=== PATIENT | female | born 1985 | race African-American/Black ===

== ENCOUNTER 2016-11-02 07:45 | Emergency (ER) | payer OTHER ==
[~2016-11-02] VITALS: Ht 147.3 cm; Wt 108.4 kg
[~2016-11-02 07:45] MED LIST: BENADRYL25 MG PO; CITRATE OF MAG296 ML PO; DICLEGIS DR 101 EACH PO; FLAGYL500 MG PO; IBUPROFEN 200200 M1; IBUPROFEN 600600 M1 PO; IBUPROFEN 800800 MG PO; KEFLEX500 MG PO; LEXAPRO20 MG PO; MACROBID 100 M100 M2 PO; MEDROLDOSEPACK PO; NOHOMEMEDICATIONS; NORCO 5-325 TA1 EACH PO; PENICILLIN VK500 MG PO; PEPCID40 MG PO; PERCOCET 5-3251 EACH PO; PROZAC20 MG PO; TIZANIDINE HCL4 MG PO; TRAZODONE HCL100 MG PO; TRINATE TABLET1 TAB PO; VALIUM5 MG PO; ZOFRAN ODT4 MG PO
[2016-11-02] MEDS ORDERED: NORCO 5-325 TA1 EACH PO (08:02)
[2016-11-02] MEDS ORDERED: VALIUM5 MG PO (08:02)
== END 2016-11-02 08:39 | disposition home or self-care (01) ==
LOC: ER 07:45
DX: S39.012A Strain of muscle, fascia and tendon of lower back, initial encounter (principal); F32.9 Major depressive disorder, single episode, unspecified; F17.210 Nicotine dependence, cigarettes, uncomplicated; F12.10 Cannabis abuse, uncomplicated; F10.99 Alcohol use, unspecified with unspecified alcohol-induced disorder; X58.XXXA Exposure to other specified factors, initial encounter; Y93.89 Activity, other specified; Y92.89 Other specified places as the place of occurrence of the external cause; Y99.8 Other external cause status

== ENCOUNTER 2016-12-29 10:36 | Emergency (ER) | payer OTHER ==
[~2016-12-29] VITALS: Ht 147.3 cm; Wt 111.6 kg
[2016-12-29 11:17] LABS: BASOPHILS 0.6 % (0.0-2.0); EOSINOPHILS 2.6 % (0.0-3.0); HEMATOCRIT 40.4 % (37.0-47.0); HEMOGLOBIN 12.8 gm/dL (12.0-15.0); LYMPHOCYTES 20.1 % (24.0-44.0); MANUAL DIFF NO; MCH 25.9 pg (26.0-34.0); MCHC 31.7 g/dL (28.0-37.0); MCV 81.6 fL (80.0-100.0); MONOCYTES 6.2 % (1.0-8.0); PLATELET COUNT 298 thou/uL (150-400); POLYS 70.5 % (36.0-66.0); RBC 4.95 mil/uL (4.20-5.00); RDW 16.7 % (10.5-14.5); WBC 9.9 thou/uL (4.0-11.0)
[2016-12-29 11:32] LABS: ANION GAP 11 mmol/L (7-16); BUN 8 mg/dL (7-18); CALCIUM 9.4 mg/dL (8.5-10.1); CHLORIDE 101 mmol/L (98-107); CO2 26 mmol/L (21-32); CREATININE 0.9 mg/dL (0.6-1.0); GLUCOSE 85 mg/dL (74-106); SODIUM 138 mmol/L (136-145)
[2016-12-29 11:38] LABS: ALKALINE PHOSPHATASE 82 U/L (46-116); DIRECT BILIRUBIN < 0.1 mg/dL (<0.1-0.3); SGOT 35 U/L (15-37); SGPT 35 U/L (30-65); TOTAL BILIRUBIN 0.6 mg/dL (<0.1-1.0); TOTAL PROTEIN 8.5 g/dL (6.4-8.2)
[2016-12-29 12:37] LABS: URINE BILIRUBIN 1+ (Negative); URINE BLOOD TRACE (Negative); URINE COLOR YELLOW; URINE GLUCOSE-RANDOM* NEGATIVE (Negative); URINE KETONES NEGATIVE (Negative); URINE NITRITE NEGATIVE (Negative); URINE PROTEIN (DIPSTICK) 1+ (Negative); URINE SPECIFIC GRAVITY >= 1.030 (1.003-1.035); URINE UROBILINOGEN 0.2 E.U./dl (0.2-1.0)
[2016-12-29 12:46] LABS: ICTOTEST (BILI CONFIRMATORY) Negative (Negative)
[2016-12-29 12:55] LABS: SQUAMOUS >10 Many /LPF (0-3)
[2016-12-29 12:56] LABS: AMORPHOUS URATES Few /LPF (None Seen); BACTERIA 1-9 Few /HPF (None Seen); CASTS None Seen /LPF (None Seen); URINE RBC None Seen /HPF (0-2); URINE WBC 6-15 Few /HPF (0-5)
[2016-12-29] MEDS ORDERED: ONDANSETRON HCL4 M2 PO (13:07)
[2016-12-29] MEDS ORDERED: MACROBID 100 M100 M1 PO (13:07)
== END 2016-12-29 13:08 | disposition home or self-care (01) ==
LOC: ER 10:36
PROVIDERS: Nurse Practitioner
DX: K52.9 Noninfective gastroenteritis and colitis, unspecified (principal); E86.0 Dehydration; N39.0 Urinary tract infection, site not specified; F32.9 Major depressive disorder, single episode, unspecified; F17.210 Nicotine dependence, cigarettes, uncomplicated; F10.99 Alcohol use, unspecified with unspecified alcohol-induced disorder

== ENCOUNTER 2019-08-07 12:12 | Emergency (ER) | payer OTHER ==
[~2019-08-07] VITALS: Ht 147.3 cm; Wt 108.0 kg
[~2019-08-07 12:12] MED LIST changes: +MACROBID 100 M100 M1 PO; +ONDANSETRON HCL4 M2 PO
[2019-08-07 12:38] LABS: URINE BILIRUBIN NEGATIVE (Negative); URINE BLOOD NEGATIVE (Negative); URINE CLARITY CLOUDY; URINE COLOR YELLOW; URINE GLUCOSE-RANDOM* NEGATIVE (Negative); URINE KETONES NEGATIVE (Negative); URINE LEUKOCYTES-REFLEX 1+ (Negative); URINE NITRITE-REFLEX NEGATIVE (Negative); URINE PROTEIN (DIPSTICK) NEGATIVE (Negative); URINE UROBILINOGEN 0.2 E.U./dl (0.2-1.0)
[2019-08-07 12:45] LABS: BACTERIA-REFLEX 1-9 Few /HPF (None Seen); CASTS None Seen /LPF (None Seen); CRYSTALS None Seen /LPF (None Seen); SQUAMOUS >10 Many /LPF (0-3); URINE RBC None Seen /HPF (0-2); URINE WBC-REFLEX 0-5 Rare /HPF (0-5)
[2019-08-07 13:26] LABS: CALCIUM 9.3 mg/dL (8.5-10.1); CREATININE 0.8 mg/dL (0.6-1.0); POTASSIUM 4.5 mmol/L (3.5-5.1)
[2019-08-07 13:32] LABS: ALBUMIN 3.8 g/dL (3.4-5.0); TOTAL BILIRUBIN 0.5 mg/dL (<0.1-1.0); TOTAL PROTEIN 7.6 g/dL (6.4-8.2)
[2019-08-07 13:46] LABS: ABSOLUTE NEUTROPHILS 4.6 thou/uL (1.4-8.2); BASOPHILS 1.2 % (0.0-2.0); EOSINOPHILS 1.8 % (0.0-3.0); HEMATOCRIT 44.4 % (37.0-47.0); HEMOGLOBIN 14.4 gm/dL (12.0-15.0); MCH 29.3 pg (26.0-34.0); MCHC 32.4 g/dL (28.0-37.0); MCV 90.3 fL (80.0-100.0); MONOCYTES 5.3 % (1.0-8.0); PLATELET COUNT 261 thou/uL (150-400); POLYS 60.7 % (36.0-66.0); RBC 4.92 mil/uL (4.20-5.00); RDW 14.3 % (10.5-14.5); WBC 7.6 thou/uL (4.0-11.0)
[2019-08-07 14:07] LABS: AMP/METHAMP Negative (Negative); BARBITURATES Negative (Negative); BENZODIAZEPINES Negative (Negative); COCAINE Negative (Negative); METHADONE Negative (Negative); OPIATES Negative (Negative); PCP Negative (Negative)
[2019-08-07] MEDS ORDERED: NORCO 5-325 TA1 EAC1 PO (19:05)
[2019-08-07 19:18] VITALS: BP 163/88
== END 2019-08-07 19:20 | disposition left against medical advice (07) ==
LOC: ER 12:12
PROVIDERS: Nurse Practitioner Family
DX: G35 Multiple sclerosis (principal); F17.210 Nicotine dependence, cigarettes, uncomplicated